=== PATIENT | male | born 2005 | race Caucasian/White ===

== ENCOUNTER 2024-01-30 08:15 | Outpatient (RCR) | payer OTHER, SELFPAY | END 2024-04-16 13:35 | disposition home or self-care (01) | PROVIDERS: PCP Pediatrics; Visit Provider Orthopaedic Surgery | DX: M75.51 Bursitis of right shoulder (principal); M75.81 Other shoulder lesions, right shoulder; Z51.89 Encounter for other specified aftercare | CPT/HCPCS: 97110; 97161 ==

== ENCOUNTER 2025-05-13 08:15 | Outpatient (RCR) | payer OTHER, SELFPAY | END 2025-09-10 23:59 | disposition home or self-care (01) | PROVIDERS: PCP Pediatrics; Visit Provider Family Medicine | DX: M25.531 Pain in right wrist (principal); Z51.89 Encounter for other specified aftercare | CPT/HCPCS: 97033; 97035; 97140; 97165 ==